=== PATIENT | female | born 1975 | race Caucasian/White ===

== ENCOUNTER 2017-01-28 15:15 | Emergency (ER) | payer OTHER ==
[2017-01-28 15:19] VITALS: BMI 27.6
--- NOTE | 2017-01-28 16:27 | PDOC ---
History of Present Illness <Moreno Spicer - Last Filed: 01/28/17 16:26> - General History Source: Patient Exam Limitations: No Limitations - History of Present Illness Initial Comments: 01/28/17 16:43 The patient is a 41-year-old woman AO with no past medical history who presents to the emergency department with abdominal pain since 14:00 pm this afternoon. No fall, trauma, strenuous activity. Her pain is located over the right lower quadrant, described as a sharp-stabbing sensations, similar to a contraction, that lasts for approximately 4-5 minutes and radiates to her back with a rating 9/10 in severity. She reports that in 2013 she had scarring of her cervix and she experienced similar pelvic pain as the one today. She also notes that she missed her menses last month and that she got her menses 2 days ago and it has been heavy. She reports soaking two tampons today. No other complaints. She denies fever, chills, diaphoresis, generalized weakness. She denies chest pain, shortness of breath, cough She denies nausea, vomiting, diarrhea, dysuria, hematuria, urinary frequency and urgency, flank pain, vaginal discharge. Allergies: No Known Drug Allergies Past Surgical History: Cholecystectomy Social History: No tobacco, EtOH and recreational drug use. <Layla North - Last Filed: 01/28/17 18:24> - General Chief Complaint: Pain Stated Complaint: LOWER PELVIC PAIN Time Seen by Provider: 01/28/17 16:26 Past History - Surgical History Cholecystectomy: Yes - Psycho/Social/Smoking Cessation Hx Anxiety: No Suicidal Ideation: No Smoking History: Never smoked Hx Alcohol Use: No Drug/Substance Use Hx: No Substance Use Type: None <Moreno Spicer - Last Filed: 01/28/17 16:26> <Layla North - Last Filed: 01/28/17 18:24> - Past Medical History Allergies/Adverse Reactions: Allergies Allergy/AdvReac Type Severity Reaction Status Date / Time No Known Allergies Allergy Verified 01/28/17 15:19 Review of Systems - Review of Systems Able to Perform ROS?: Yes Comments:: 01/28/17 16:44 GENERAL/CONSTITUTIONAL: No fever or chills. No weakness. HEAD, EYES, EARS, NOSE AND THROAT: No change in vision. No ear pain or discharge. No sore throat. CARDIOVASCULAR: No chest pain or shortness of breath. RESPIRATORY: No cough, wheezing, or hemoptysis. GASTROINTESTINAL: Yes: Right lower pelvic pain. Vaginal bleed. No nausea, vomiting, diarrhea or constipation. GENITOURINARY: No dysuria, frequency, or change in urination. MUSCULOSKELETAL: Yes: Back pain. No joint or muscle swelling or pain. No neck pain. SKIN: No rash NEUROLOGIC: No headache, vertigo, loss of consciousness, or change in strength/ sensation. ENDOCRINE: No increased thirst. No abnormal weight change. HEMATOLOGIC/LYMPHATIC: No anemia, easy bleeding, or history of blood clots. ALLERGIC/IMMUNOLOGIC: No hives or skin allergy. <Layla North - Last Filed: 01/28/17 18:24> *Physical Exam - Vital Signs Last Vital Signs Temp Pulse Resp BP Pulse Ox 98.0 F 66 18 133/86 99 01/28/17 15:15 01/28/17 15:15 01/28/17 15:15 01/28/17 15:15 01/28/17 15:15 <Moreno Spicer - Last Filed: 01/28/17 16:26> - Vital Signs Last Vital Signs Temp Pulse Resp BP Pulse Ox 98.0 F 66 18 133/86 99 01/28/17 15:15 01/28/17 15:15 01/28/17 15:15 01/28/17 15:15 01/28/17 15:15 - Physical Exam Comments: 01/28/17 16:45 GENERAL: Awake, alert, and fully oriented, in no acute distress HEAD: No signs of trauma EYES: PERRLA, EOMI, sclera anicteric, conjunctiva clear ENT: Auricles normal inspection, hearing grossly normal, nares patent, oropharynx clear without exudates. Moist mucosa NECK: Normal ROM, supple, no lymphadenopathy, JVD, or masses LUNGS: Breath sounds equal, clear to auscultation bilaterally. No wheezes, and no crackles HEART: Regular rate and rhythm, normal S1 and S2, no murmurs, rubs or gallops ABDOMEN: Soft, nontender, normoactive bowel sounds. No guarding, no rebound. No masses EXTREMITIES: Normal range of motion, no edema. No clubbing or cyanosis. No cords, erythema, or tenderness NEUROLOGICAL: Cranial nerves II through XII grossly intact. Normal speech, normal gait PELVIC: Minimal bleeding. Cervix deformed (previously operated) blood coming directly form the cervix and dark brown in appearance. No adnexal tenderness. <Layla North - Last Filed: 01/28/17 18:24> ED Treatment Course - LABORATORY CBC & Chemistry Diagram: 01/28/17 17:25 01/28/17 17:25 <Layla North - Last Filed: 01/28/17 18:24> *DC/Admit/Observation/Transfer - Attestations Physician Attestion: 01/28/17 16:27 I, Dr. Moreno Sipcer, attest that this document has been prepared under my direction and personally reviewed by me in its entirety. I further attest, that it accurately reflects all work, treatment, procedures and medical decision -making performed by me. <Moreno Spicer - Last Filed: 01/28/17 16:26> <Layla North - Last Filed: 01/28/17 18:24> - Referrals Referrals: STAFF,NOT ON [Primary Care Provider] -
[2017-01-28 17:36] LABS: URINE APPEARANCE SLCLOUDY; URINE BILIRUBIN NEGATIVE (NEGATIVE); URINE COLOR YELLOW; URINE GLUCOSE (UA) NEGATIVE (NEGATIVE); URINE KETONE NEGATIVE (NEGATIVE); URINE NITRITE NEGATIVE (NEGATIVE); URINE UROBILINOGEN NEGATIVE E.U./dl (0.2-1.0)
[2017-01-28 17:40] LABS: BASOPHIL 0.4 % (0-2.0); EOSINOPHIL 0.4 % (0-4.5); MCH 30.5 pg (25.7-33.7); MCHC 33.7 g/dl (32.0-36.0); MEAN CELL VOLUME 90.3 fl (80-96); MEAN PLT VOLUME 7.9 fl (7.5-11.1); NEUTROPHILS 76.2 % (42.8-82.8); PLATELET COUNT 287 K/MM3 (134-434); RDW 12.5 % (11.6-15.6); WHITE BLOOD COUNT 12.9 K/mm3 (4.0-10.0)
[2017-01-28] MEDS ORDERED: LORazepam 0.5 MG TABLET ONE ×2 (17:42→17:43)
[2017-01-28] MEDS ORDERED: OXYCODONE/APAP 5/325MG COMBO TABLET ONE (17:42)
[2017-01-28] MEDS ORDERED: OXYCODONE/APAP 5/325MG COMBO TABLET PO ONE (17:43)
[2017-01-28] MEDS ORDERED: LORazepam 1 MG TABLET PO ONE (17:43)
[2017-01-28 18:03] LABS: INR 1.03 (0.82-1.09); PROTHROMBIN TIME (PATIENT) 11.3 SEC (9.98-11.88)
[2017-01-28 18:14] LABS: URINE BLOOD 3+ (NEGATIVE); URINE LEUK ESTERASE TRACE (NEGATIVE); URINE PROTEIN 1+ (NEGATIVE)
[2017-01-28 18:16] LABS: URINE BACTERIA RARE /hpf (NONE SEEN); URINE MUCUS RARE; URINE RBC 625 /hpf (0-3); URINE WBC 358 /hpf (3-5); YEAST FEW
[2017-01-28 18:48] LABS: ALBUMIN 3.8 g/dl (3.4-5.0); ANION GAP 7 (8-16); CALCIUM 8.8 mg/dL (8.5-10.1); CO2 28 mmol/L (21-32); GLUCOSE,RANDOM 92 mg/dL (74-106); SGOT/AST 14 U/L (15-37); SGPT/ALT 17 U/L (12-78)
[2017-01-28 18:51] LABS: ALK PHOS 48 U/L (45-117); BILIRUBIN,TOTAL 0.8 mg/dL (0.2-1.0); TOT PROT 7.6 g/dl (6.4-8.2)
--- NOTE | 2017-01-28 20:07 | PDOC ---
*Physical Exam - Vital Signs Last Vital Signs Temp Pulse Resp BP Pulse Ox 98.0 F 66 18 133/86 100 01/28/17 15:15 01/28/17 15:15 01/28/17 15:15 01/28/17 15:15 01/28/17 19:26 ED Treatment Course - LABORATORY CBC & Chemistry Diagram: 01/28/17 17:25 01/28/17 17:25 - ADDITIONAL ORDERS Additional order review: Laboratory Results 01/28/17 01/28/17 01/28/17 17:25 17:25 17:20 INR 1.03 Sodium 139 Potassium 4.3 Chloride 104 Carbon Dioxide 28 Anion Gap 7 L BUN 13 Creatinine 1.0 Creat Clearance w eGFR > 60 Random Glucose 92 Calcium 8.8 Total Bilirubin 0.8 AST 14 L ALT 17 Alkaline Phosphatase 48 Total Protein 7.6 Albumin 3.8 Serum , Qual Negative Urine Color Yellow Urine Appearance Slcloudy Urine pH 5.0 Urine Protein 1+ H Urine Glucose (UA) Negative Urine Ketones Negative Urine Blood 3+ H Urine Nitrite Negative Urine Bilirubin Negative Urine Urobilinogen Negative Ur Leukocyte Esterase Trace H Urine RBC 625 Urine WBC 358 Ur Epithelial Cells Rare Urine Bacteria Rare Urine Mucus Rare Urine Yeast Few Blood Type Antibody Screen 01/28/17 16:51 INR Sodium Potassium Chloride Carbon Dioxide Anion Gap BUN Creatinine Creat Clearance w eGFR Random Glucose Calcium Total Bilirubin AST ALT Alkaline Phosphatase Total Protein Albumin Serum , Qual Urine Color Urine Appearance Urine pH Urine Protein Urine Glucose (UA) Urine Ketones Urine Blood Urine Nitrite Urine Bilirubin Urine Urobilinogen Ur Leukocyte Esterase Urine RBC Urine WBC Ur Epithelial Cells Urine Bacteria Urine Mucus Urine Yeast Blood Type O POSITIVE Antibody Screen Negative 01/28/17 17:25 RBC 4.08 MCV 90.3 MCHC 33.7 RDW 12.5 MPV 7.9 Neutrophils % 76.2 Lymphocytes % 16.6 Monocytes % 6.4 Eosinophils % 0.4 Basophils % 0.4 - Medications Given in the ED: ED Medications Discontinued Medications Generic Name Dose Route Start Last Admin Trade Name Freq PRN Reason Stop Dose Admin Lorazepam 1 mg 01/28/17 17:43 01/28/17 17:47 Ativan - PO 01/28/17 17:44 1 mg ONCE ONE Administration Oxycodone/Acetaminophen 1 combo 01/28/17 17:43 01/28/17 17:47 Percocet 5/325 - PO 01/28/17 17:44 1 combo ONCE ONE Administration *DC/Admit/Observation/Transfer Diagnosis at time of Disposition: Dysfunctional uterine bleeding - Discharge Dispostion Disposition: HOME Condition at time of disposition: Stable Admit: No - Referrals Referrals: STAFF,NOT ON [Primary Care Provider] - Marian Castaneda MD [Staff Physician] - - Patient Instructions Printed Discharge Instructions: DI for Vaginal Bleeding - Post Discharge Activity
[2017-01-28 20:17] VITALS: BP 130/84; PULSE 68; TEMP 98
== END 2017-01-28 20:11 | disposition home or self-care (01) ==
LOC: JER 15:15
DX: N93.8 Other specified abnormal uterine and vaginal bleeding (principal)
CPT/HCPCS: 36415; 80053; 81003; 81015; 84703; 85025; 85610; 86850; 86900; 86901; 99282-25